=== PATIENT | male | born 1955 | race Hispanic/Latino ===

== ENCOUNTER 2017-12-19 17:58 | Emergency (ER) | payer MEDICAID | END 2017-12-19 19:16 | disposition home or self-care (01) | LOC: EDH 17:58 | DX: J04.0 Acute laryngitis (principal); M54.2 Cervicalgia; G89.29 Other chronic pain; Z79.899 Other long term (current) drug therapy; Z87.891 Personal history of nicotine dependence ==

== ENCOUNTER 2022-01-11 07:20 | Emergency (ER) | payer MEDICARE ==
[~2022-01-11] VITALS: Ht 167.6 cm; Wt 76.2 kg
[2022-01-11 07:22] VITALS: BP 138/85
[2022-01-11] MEDS ORDERED: ACETAMINOPHEN 325 MG TAB PO ONE (08:00)
[2022-01-11] MEDS ORDERED: NAPR-1196 PO (08:39)
[2022-01-11] MEDS ORDERED: PRED10TA23 PO (08:39)
== END 2022-01-11 09:01 | disposition home or self-care (01) ==
LOC: EDH 07:20
DX: G89.29 Other chronic pain (principal); M54.9 Dorsalgia, unspecified; Z79.1 Long term (current) use of non-steroidal anti-inflammatories (NSAID); Z79.52 Long term (current) use of systemic steroids
CPT/HCPCS: 72131

== ENCOUNTER 2025-02-06 10:53 | Emergency (ER) | payer MEDICARE ==
[~2025-02-06] VITALS: Ht 167.6 cm; Wt 78.5 kg
[~2025-02-06 10:53] MED LIST: NAPR-1196 PO; PRED10TA23 PO
[2025-02-06 10:54] VITALS: BP 117/85; PULSE 104; RESP 16; TEMP 97.3; O2SAT 98
--- NOTE | 2025-02-06 11:30 | NUR ---
pt refusing to fill out registration paperwork. only wanting pain meds no shots
--- NOTE | 2025-02-06 12:15 | ERN ---
ED Note History of Present Illness Stated Complaint: LOWER BACK PAIN Chief Complaint: Low Back Pain/Injury Time Seen by MD: 10:58 Dictation: Patient was seen by me in the triage area however patient refused to sign any consents for evaluation and treatment I advised the patient that we are happy to see him evaluated him and treat him if he changes his mind he refused and left the emergency department. Allergies: Coded Allergies: No Known Allergies (Unverified Allergy, Unknown, 01/11/22) Home Meds Active Scripts Prednisone (Prednisone) 10 Mg Tab.ds.pk, 10 MG PO BID for 7 Days, #14 BOTTLE Prov:ROBBY IBARRA MD 01/11/22 Naproxen (Naproxen) 250 Mg Tablet, 500 MG PO BID for 7 Days, #14 TAB Prov:ROBBY IBARRA MD 01/11/22 Past Medical History Past Medical History: No Pertinent History Surgical History: None Review of System Dictation unable to take Initial Vital Sign VS Vital Signs Date Time Temp Pulse Resp B/P (MAP) Pulse Ox O2 Delivery O2 Flow Rate FiO2 02/06/25 10:54 97.3 104 16 117/85 100 Room Air 0 02/06/25 10:54 21 Physical Exam Dictation unable to do exam ED Course ED Course Vital Signs Date Time Temp Pulse Resp B/P (MAP) Pulse Ox O2 Delivery O2 Flow Rate FiO2 02/06/25 10:54 97.3 104 16 117/85 98 Room Air* 0 21 02/06/25 10:54 97.3 104 16 117/85 100 Room Air 0 Medical Decision Making MDM . DX & DISP Disposition: AMA Departure Condition: Stable Referrals: SIRIA COVINGTON MD (PCP) BLANCA CASTORENA MD February 06, 2025 12:15
== END 2025-02-06 12:25 | disposition left against medical advice (07) ==
LOC: EDH 10:53
DX: M54.50 Low back pain, unspecified (principal); Z53.21 Procedure and treatment not carried out due to patient leaving prior to being seen by health care provider